=== PATIENT | female | born 1950 | race Asian ===

== ENCOUNTER 2024-04-11 21:07 | Emergency (ER) | payer OTHER ==
[~2024-04-11] VITALS: Ht 167.6 cm; Wt 63.6 kg
[~2024-04-11 21:07] MED LIST: HYDR25TA2 PO; LEVO75 PO; LISI-892 PO; LOVA20TA73 PO; NITR25OR7 PO; OMEP20 PO; PROP20TA18 PO; SMZ/TMP PO
[2024-04-11 21:14] VITALS: TEMP 98
[2024-04-12] MEDS ORDERED: AMOX-457 PO (01:21)
[2024-04-12] MEDS: PERTUSS(ACELL),DIPH,TET/PF 0.5 ML SYRINGE [ADULT] IM. ONE (01:25)
[2024-04-12] MEDS: BACITRACIN 0.9 GM PACKET OINTMENT TP ONE (01:25)
[2024-04-12] MEDS: AMOX TR/POT CLAV 875 MG/125 MG TABLET PO ONE (01:25)
[2024-04-12 01:42] VITALS: BP 131/69; PULSE 81; RESP 18; O2SAT 95
== END 2024-04-12 01:45 | disposition home or self-care (01) ==
LOC: EMS 21:07
DX: S61.051A Open bite of right thumb without damage to nail, initial encounter (principal); I10 Essential (primary) hypertension; E03.9 Hypothyroidism, unspecified; Z98.51 Tubal ligation status; Z79.899 Other long term (current) drug therapy; W54.0XXA Bitten by dog, initial encounter; Y93.89 Activity, other specified; Y92.89 Other specified places as the place of occurrence of the external cause; Y99.8 Other external cause status
CPT/HCPCS: 90471; 90715; 99283